=== PATIENT | female | born 1965 | race Caucasian/White ===

== ENCOUNTER → 2018-01-22 | Outpatient (CLI) | payer BC | LOC: MC.RAD 11:20 | DX: Z12.31 Encounter for screening mammogram for malignant neoplasm of breast (principal) ==

== ENCOUNTER → 2019-09-05 | Outpatient (CLI) | payer BC ==
[~2019-09-05] MED LIST: CARAFATE 1GM1 G PO; MUCINEX D1 TER PO; PEPCID AC 10MG10 MG PO; PHARMASSURE ZIN50 MG PO; PRILOSEC 20MG20 MG PO; PROTONIX 40MG T40 MG PO
== END ==
LOC: COL.RAD 08:00
DX: R10.13 Epigastric pain (principal)

== ENCOUNTER → 2019-09-09 | Outpatient (CLI) | payer BC | LOC: MC.RAD 07-23 11:30 | DX: Z00.00 Encounter for general adult medical examination without abnormal findings (principal); Z12.31 Encounter for screening mammogram for malignant neoplasm of breast ==

== ENCOUNTER → 2020-09-10 | Outpatient (CLI) | payer BC | LOC: MC.RAD 07:19 | DX: Z12.31 Encounter for screening mammogram for malignant neoplasm of breast (principal); Z80.3 Family history of malignant neoplasm of breast ==

== ENCOUNTER → 2021-10-25 | Outpatient (CLI) | payer BC | LOC: MC.RAD 09:00 | DX: Z12.31 Encounter for screening mammogram for malignant neoplasm of breast (principal); Z80.3 Family history of malignant neoplasm of breast ==